=== PATIENT | female | born 1970 | race Caucasian/White ===

== ENCOUNTER 2018-03-30 12:38 | Emergency (ER) | payer MEDICAID, OTHER ==
[~2018-03-30] VITALS: Ht 167.6 cm; Wt 113.0 kg
[~2018-03-30 12:38] MED LIST: NARA2.5T10
[2018-03-30 18:12] VITALS: BP 143/81
== END 2018-03-30 18:17 | disposition home or self-care (01) ==
LOC: ER 12:38
DX: S50.12XA Contusion of left forearm, initial encounter (principal); S60.212A Contusion of left wrist, initial encounter; S60.222A Contusion of left hand, initial encounter; V00.131A Fall from skateboard, initial encounter; Y93.51 Activity, roller skating (inline) and skateboarding; Y92.89 Other specified places as the place of occurrence of the external cause; I10 Essential (primary) hypertension
CPT/HCPCS: 29125; 73090; 73110; 99284; Z7610

== ENCOUNTER 2019-06-16 08:11 | Emergency (ER) | payer MEDICAID ==
[~2019-06-16] VITALS: Ht 167.6 cm; Wt 114.0 kg
[2019-06-16 09:04] VITALS: BP 138/83
[2019-06-16] MEDS ORDERED: IPRATROPIUM BROMIDE (0.02%) 0.5MG/2.5ML NEB HHN STA (09:20)
[2019-06-16] MEDS ORDERED: ALBUTEROL (0.083%) 2.5MG/3ML NEB HHN STA (09:20)
== END 2019-06-16 11:21 | disposition home or self-care (01) ==
LOC: ER 08:11
DX: J45.901 Unspecified asthma with (acute) exacerbation (principal); I10 Essential (primary) hypertension
CPT/HCPCS: 94640; 99283; J7611; Z7610

== ENCOUNTER 2022-08-02 13:03 | Emergency (ER) | payer MEDICAID ==
[~2022-08-02] VITALS: Ht 167.6 cm; Wt 115.0 kg
[2022-08-02] MEDS ORDERED: AMLO10TA80 PO (13:19)
[2022-08-02] MEDS ORDERED: MORPHINE SULFATE 10 MG/ML CPJ IM ONE (13:45)
[2022-08-02 15:46] VITALS: BP 133/70
== END 2022-08-02 16:00 | disposition home or self-care (01) ==
LOC: ER 13:03
DX: G43.909 Migraine, unspecified, not intractable, without status migrainosus (principal); I10 Essential (primary) hypertension; J45.909 Unspecified asthma, uncomplicated; Z79.899 Other long term (current) drug therapy
CPT/HCPCS: 81025; 96372; 99283; J2270

== ENCOUNTER 2023-01-15 15:22 | Emergency (ER) | payer MEDICAID ==
[~2023-01-15] VITALS: Ht 167.6 cm; Wt 106.0 kg
[~2023-01-15 15:22] MED LIST changes: +AMLO10TA80 PO
[2023-01-15 15:56] VITALS: BP 165/90
[2023-01-15] MEDS ORDERED: IBUP-2029 MT (16:54)
== END 2023-01-15 17:00 | disposition home or self-care (01) ==
LOC: ER 15:22
DX: M25.561 Pain in right knee (principal); J45.909 Unspecified asthma, uncomplicated; Z86.59 Personal history of other mental and behavioral disorders; Z98.890 Other specified postprocedural states
CPT/HCPCS: 73562; 99283